=== PATIENT | male | born 1940 | race Native Hawaiian/Other Pacific Islander ===

== ENCOUNTER 2017-02-18 09:26 | Outpatient (CLI) | payer OTHER, BC ==
[~2017-02-18 09:26] MED LIST: AMLO5TAB PO; CYAN10009 IM; GLYB5TAB65 PO; INSU100P SC; LISI20TA11 PO; LISI20TA24 PO; MECL25TA84 PO; MEGESTROL AC40 MG OR; METF100038 OR; METF500T PO; NEURONTIN 100M100 MG; OMEPRAZOLE20 M1 OR; PROMETHAZINE25 MG OR; ZOLOFT25 MG OR
[2017-02-18 09:46] LABS: PLATELET COUNT 332 K/uL (142-355)
[2017-02-18 10:19] LABS: POTASSIUM 4.6 mmol/L (3.6-5.2); SODIUM 135 mmol/L (136-145)
== END 2017-02-18 20:26 | disposition home or self-care (01) ==
LOC: LABW 09:26
PROVIDERS: Internal Medicine
DX: E11.9 Type 2 diabetes mellitus without complications (principal); Z12.5 Encounter for screening for malignant neoplasm of prostate
CPT/HCPCS: 36415; 80053; 80061; 81000; 82043; 82570; 83036; 84153; 84439; 84443; 85027

== ENCOUNTER 2017-06-07 10:29 | Outpatient (CLI) | payer OTHER, BC ==
[2017-06-07 11:04] LABS: POTASSIUM 4.7 mmol/L (3.6-5.2); SODIUM 139 mmol/L (136-145)
== END 2017-06-07 19:07 | disposition home or self-care (01) ==
LOC: LABW 10:29 → RAD 10:29 → LABW 19:07
PROVIDERS: Internal Medicine
DX: M25.562 Pain in left knee (principal); M79.89 Other specified soft tissue disorders
CPT/HCPCS: 36415; 80053; 81000; 84550

== ENCOUNTER 2017-12-27 08:25 | Outpatient (CLI) | payer OTHER, BC ==
[2017-12-27 09:02] LABS: PLATELET COUNT 301 K/uL (142-355)
[2017-12-27 09:40] LABS: POTASSIUM 4.1 mmol/L (3.6-5.2)
[2018-01-06] MEDS ORDERED: ZANTAC 75 PO (04:16)
[2018-01-06] MEDS ORDERED: COLCHICINE0.6 MG PO (04:16)
[2018-01-06] MEDS ORDERED: ASPIRIN/ENTERIC81 MG PO (04:17)
== END 2017-12-27 19:46 | disposition home or self-care (01) ==
LOC: LABW 08:25
PROVIDERS: Internal Medicine
DX: E11.9 Type 2 diabetes mellitus without complications (principal)
CPT/HCPCS: 36415; 80053; 80061; 81000; 82043; 82570; 83036; 84439; 84443; 85027

== ENCOUNTER 2018-01-05 22:28 | Outpatient (CLI) | payer OTHER, BC ==
[2018-01-05] MEDS ORDERED: DOCU100C10 PO (22:51)
[2018-01-05] MEDS ORDERED: PANTOPRAZOLE 40MG TA PO (22:52)
[2018-01-05] MEDS ORDERED: AMLODIPINE BESYLATE PO (22:52)
[2018-01-05] MEDS ORDERED: ALPR0.2566 PO (22:52)
[2018-01-05] MEDS ORDERED: LIPITOR20 MG PO (22:53)
[2018-01-05] MEDS ORDERED: TRAM50TA PO (22:53)
[2018-01-06] MEDS ORDERED: COLCHICINE0.6 MG PO (04:16)
[2018-01-06] MEDS ORDERED: ZANTAC 75 PO (04:16)
[2018-01-06] MEDS ORDERED: ASPIRIN/ENTERIC81 MG PO (04:17)
== END 2018-01-05 22:30 | disposition short-term general hospital (02) ==
LOC: AMB 22:28
DX: R53.1 Weakness (principal); R53.81 Other malaise; N39.498 Other specified urinary incontinence
CPT/HCPCS: A0425; A0427

== ENCOUNTER 2018-03-03 08:18 | Outpatient (CLI) | payer OTHER, BC ==
[~2018-03-03 08:18] MED LIST changes: +ALPR0.2566 PO; +AMLODIPINE BESYLATE PO; +ASPIRIN/ENTERIC81 MG PO; +COLCHICINE0.6 MG PO; +DOCU100C10 PO; +LIPITOR20 MG PO; +PANTOPRAZOLE 40MG TA PO; +TRAM50TA PO; +ZANTAC 75 PO
[2018-03-03 08:49] LABS: POTASSIUM 3.8 mmol/L (3.6-5.2)
== END 2018-03-03 19:12 | disposition home or self-care (01) ==
LOC: LABW 08:18
PROVIDERS: Internal Medicine
DX: E11.40 Type 2 diabetes mellitus with diabetic neuropathy, unspecified (principal)
CPT/HCPCS: 36415; 80053; 83036

== ENCOUNTER 2018-09-21 13:41 | Emergency (ER) | payer OTHER, BC ==
[~2018-09-21] VITALS: Ht 162.6 cm; Wt 77.1 kg
[2018-09-21 13:45] VITALS: BP 191/92; TEMP 98
[2018-09-21 14:23] LABS: PLATELET COUNT 341 K/uL (142-355)
[2018-09-21 14:27] LABS: POTASSIUM 4.8 mmol/L (3.6-5.2)
== END 2018-09-21 15:30 | disposition home or self-care (01) ==
LOC: ED 13:41
DX: I10 Essential (primary) hypertension (principal)
CPT/HCPCS: 36415; 80053; 81000; 85027; 99283

== ENCOUNTER 2018-12-05 09:15 | Outpatient (CLI) | payer OTHER, BC ==
[2018-12-05 09:43] LABS: PLATELET COUNT 322 K/uL (142-355)
[2018-12-05 10:17] LABS: POTASSIUM 4.5 mmol/L (3.6-5.2)
== END 2018-12-05 19:05 | disposition home or self-care (01) ==
LOC: LABW 09:15
PROVIDERS: Internal Medicine
DX: E11.9 Type 2 diabetes mellitus without complications (principal)
CPT/HCPCS: 36415; 80053; 80061; 81000; 83036; 84443; 85027

== ENCOUNTER 2019-04-12 08:38 | Outpatient (CLI) | payer OTHER, BC ==
[2019-04-12 08:57] LABS: PLATELET COUNT 313 K/uL (142-355)
[2019-04-12 09:15] LABS: POTASSIUM 4.4 mmol/L (3.6-5.2)
== END 2019-04-12 23:44 | disposition home or self-care (01) ==
LOC: LABW 08:38
PROVIDERS: Internal Medicine
DX: E11.41 Type 2 diabetes mellitus with diabetic mononeuropathy (principal)
CPT/HCPCS: 36415; 80053; 80061; 81000; 85027

== ENCOUNTER 2019-06-11 09:55 | Outpatient (CLI) | payer OTHER, BC ==
[2019-06-11 11:08] LABS: PLATELET COUNT 319 K/uL (142-355)
== END 2019-06-11 23:20 | disposition home or self-care (01) ==
LOC: LABW 09:55
PROVIDERS: Physician Assistant
DX: E11.9 Type 2 diabetes mellitus without complications (principal); D64.89 Other specified anemias; R35.1 Nocturia; E55.9 Vitamin D deficiency, unspecified
CPT/HCPCS: 36415; 82306; 84153; 84443; 85027

== ENCOUNTER 2019-07-30 15:41 | Outpatient (CLI) | payer OTHER, BC | END 2019-07-30 23:05 | disposition home or self-care (01) | LOC: RAD 15:41 | DX: M25.552 Pain in left hip (principal); R29.6 Repeated falls ==

== ENCOUNTER 2019-08-02 09:16 | Outpatient (CLI) | payer OTHER, BC ==
[2019-08-02] MEDS ORDERED: LISI20TA11 PO (16:25)
== END 2019-08-02 09:18 | disposition short-term general hospital (02) ==
LOC: AMB 09:16
DX: M25.552 Pain in left hip (principal); W18.39XA Other fall on same level, initial encounter; Y93.89 Activity, other specified; Y92.018 Other place in single-family (private) house as the place of occurrence of the external cause
CPT/HCPCS: A0425; A0427

== ENCOUNTER 2019-08-02 09:20 | Inpatient (IN) | payer OTHER, BC ==
[~2019-08-02] VITALS: Ht 165.1 cm; Wt 83.5 kg
[2019-08-02] VITALS (15 sets, daily range): BP systolic 101–165; BP diastolic 52–81; TEMP 97.9–101.2; BMI 29.1
[2019-08-02 10:02] LABS: POTASSIUM 4.4 mmol/L (3.6-5.2); SODIUM 133 mmol/L (136-145)
[2019-08-02 10:16] LABS: PLATELET COUNT 404 K/uL (142-355)
[2019-08-02] MEDS ORDERED: LISI20TA11 PO (16:25)
[2019-08-03] VITALS (8 sets, daily range): BP systolic 124–140; BP diastolic 55–70; TEMP 97.8–103.1
[2019-08-03 00:06] LABS: POTASSIUM 3.5 mmol/L (3.6-5.2)
[2019-08-03 00:06] LABS: PLATELET COUNT 346 K/uL (142-355)
[2019-08-03 05:14] LABS: PLATELET COUNT 376 K/uL (142-355)
[2019-08-03 05:53] LABS: POTASSIUM 3.6 mmol/L (3.6-5.2)
[2019-08-04 01:45] VITALS: TEMP 98.9
[2019-08-04 03:58] VITALS: BP 149/74; TEMP 98.6
[2019-08-04 05:36] LABS: PLATELET COUNT 347 K/uL (142-355)
[2019-08-04 05:48] LABS: POTASSIUM 3.6 mmol/L (3.6-5.2)
[2019-08-04 08:00] VITALS: BP 131/59; TEMP 98.5
[2019-08-04 12:00] VITALS: BP 110/62; TEMP 100
[2019-08-04 16:00] VITALS: BP 134/63; TEMP 100.2
[2019-08-04 19:42] VITALS: BP 130/56; TEMP 99.8
[2019-08-05] VITALS: BP 128/84; TEMP 99.6
[2019-08-05 04:00] VITALS: BP 140/62; TEMP 99.7
[2019-08-05 06:24] LABS: PLATELET COUNT 393 K/uL (142-355)
[2019-08-05 06:32] LABS: POTASSIUM 3.4 mmol/L (3.6-5.2)
[2019-08-05 08:00] VITALS: BP 142/53; TEMP 97.7
[2019-08-05 12:38] VITALS: BP 150/62
[2019-08-05 16:00] VITALS: BP 126/82; TEMP 101.6
[2019-08-05 20:00] VITALS: BP 139/52; TEMP 99.1
[2019-08-06] VITALS (7 sets, daily range): BP systolic 127–152; BP diastolic 46–73; TEMP 98.5–102.1
[2019-08-07] VITALS (13 sets, daily range): BP systolic 132–158; BP diastolic 54–68; TEMP 97.6–98.9
[2019-08-07 11:41] LABS: PLATELET COUNT 499 K/uL (142-355)
[2019-08-07 11:52] LABS: POTASSIUM 3.8 mmol/L (3.6-5.2)
[2019-08-08 04:00] VITALS: BP 109/47; TEMP 98.5
[2019-08-08 05:24] LABS: PLATELET COUNT 506 K/uL (142-355)
[2019-08-08 06:08] LABS: POTASSIUM 3.8 mmol/L (3.6-5.2)
[2019-08-08 08:00] VITALS: BP 169/65; TEMP 98.1
[2019-08-08 12:00] VITALS: BP 147/47; TEMP 98.6
[2019-08-08 16:00] VITALS: BP 159/66; TEMP 98.3
[2019-08-08 20:00] VITALS: BP 125/54; TEMP 99.2
[2019-08-09] VITALS (8 sets, daily range): BP systolic 119–143; BP diastolic 45–68; TEMP 97.2–99.2; Ht 165.1 cm; Wt 83.5 kg
[2019-08-09 05:37] LABS: PLATELET COUNT 567 K/uL (142-355)
[2019-08-09 06:03] LABS: POTASSIUM 3.9 mmol/L (3.6-5.2)
[2019-08-10] VITALS: BP 124/56; TEMP 98.1
[2019-08-10 03:59] VITALS: BP 121/49; TEMP 98.9
[2019-08-10 05:13] LABS: PLATELET COUNT 634 K/uL (142-355)
[2019-08-10 05:25] LABS: POTASSIUM 3.7 mmol/L (3.6-5.2)
[2019-08-10 08:00] VITALS: BP 125/55; TEMP 98.2
[2019-08-10 12:00] VITALS: BP 141/63; TEMP 98
[2019-08-10 16:00] VITALS: BP 135/60; TEMP 98.4
[2019-08-10 20:00] VITALS: BP 122/49; TEMP 98.1
[2019-08-11] VITALS (7 sets, daily range): BP systolic 113–140; BP diastolic 40–66; TEMP 97.3–99.1
[2019-08-11 05:27] LABS: PLATELET COUNT 656 K/uL (142-355)
[2019-08-11 05:37] LABS: POTASSIUM 3.7 mmol/L (3.6-5.2)
[2019-08-12 03:52] VITALS: BP 135/61; TEMP 99.3
[2019-08-12 05:14] LABS: PLATELET COUNT 698 K/uL (142-355)
[2019-08-12 05:36] LABS: POTASSIUM 4.3 mmol/L (3.6-5.2)
[2019-08-12 08:00] VITALS: BP 141/66; TEMP 98.6
[2019-08-12 12:00] VITALS: BP 138/72; TEMP 98.6
[2019-08-12 16:00] VITALS: BP 162/72; TEMP 98.6
[2019-08-12 19:53] VITALS: BP 150/56; TEMP 98
[2019-08-12 23:58] VITALS: BP 135/52; TEMP 98
[2019-08-13 03:51] VITALS: BP 148/67; TEMP 98
[2019-08-13 05:48] LABS: PLATELET COUNT 663 K/uL (142-355)
[2019-08-13 05:54] LABS: POTASSIUM 4.2 mmol/L (3.6-5.2)
[2019-08-13 08:04] VITALS: BP 152/66; TEMP 98.9
[2019-08-13 12:09] VITALS: BP 178/74; TEMP 98.1
[2019-08-13 16:09] VITALS: BP 160/50; TEMP 98
[2019-08-13 20:00] VITALS: BP 162/66; TEMP 98.7
[2019-08-14 00:28] VITALS: BP 149/58; TEMP 98.9
[2019-08-14 04:00] VITALS: BP 165/74; TEMP 98.3
[2019-08-14 08:00] VITALS: BP 172/68; TEMP 98
[2019-08-14 12:00] VITALS: BP 178/68; TEMP 98.7
[2019-08-14 16:00] VITALS: BP 155/59; TEMP 98.4
[2019-08-14 19:37] VITALS: BP 142/66; TEMP 99.7
[2019-08-15 00:24] VITALS: BP 146/49; TEMP 98.3
[2019-08-15 04:02] VITALS: BP 142/55; TEMP 97.7
[2019-08-15 06:45] LABS: POTASSIUM 3.2 mmol/L (3.6-5.2)
[2019-08-15 06:46] LABS: PLATELET COUNT 582 K/uL (142-355)
[2019-08-15 08:00] VITALS: BP 155/59; TEMP 98.5
[2019-08-15 12:17] VITALS: BP 160/69; TEMP 99.4
[2019-08-15 15:47] VITALS: BP 142/55; TEMP 97.9
[2019-08-15 19:55] VITALS: BP 142/55; TEMP 98.3
[2019-08-16] VITALS (7 sets, daily range): BP systolic 141–173; BP diastolic 57–92; TEMP 97.9–98.8
[2019-08-16 05:00] LABS: PLATELET COUNT 584 K/uL (142-355)
[2019-08-16 05:42] LABS: POTASSIUM 4.1 mmol/L (3.6-5.2)
[2019-08-17 04:00] VITALS: BP 136/45; TEMP 98.5
[2019-08-17 08:00] VITALS: BP 173/73; TEMP 97.6
[2019-08-17 12:00] VITALS: BP 179/81; TEMP 97.2
[2019-08-17 16:00] VITALS: BP 151/63; TEMP 97.9
[2019-08-17 20:00] VITALS: BP 151/68; TEMP 98.9
[2019-08-18] VITALS: BP 141/61; TEMP 98.1
[2019-08-18 04:00] VITALS: BP 164/66; TEMP 98.3
[2019-08-18 04:44] LABS: PLATELET COUNT 499 K/uL (142-355)
[2019-08-18 05:29] LABS: POTASSIUM 4.1 mmol/L (3.6-5.2)
[2019-08-18 08:09] VITALS: BP 149/69; TEMP 97.7
[2019-08-18 12:09] VITALS: BP 143/63; TEMP 98.4
[2019-08-18 16:08] VITALS: BP 141/64; TEMP 98.3
[2019-08-18 20:00] VITALS: BP 149/67; TEMP 98.2
[2019-08-19] VITALS: BP 130/47; TEMP 97.6
[2019-08-19 04:00] VITALS: BP 142/44; TEMP 98.1
[2019-08-19 08:00] VITALS: BP 137/72; TEMP 98.5
[2019-08-19 12:00] VITALS: BP 143/57; TEMP 98.3
[2019-08-19 16:00] VITALS: BP 140/54; TEMP 98.5
[2019-08-19 19:33] VITALS: BP 145/56; TEMP 99
[2019-08-20 00:02] VITALS: BP 142/49; TEMP 98.2
[2019-08-20 04:24] VITALS: BP 147/63; TEMP 98.5
[2019-08-20 05:45] LABS: POTASSIUM 4.2 mmol/L (3.6-5.2)
[2019-08-20 06:22] LABS: PLATELET COUNT 459 K/uL (142-355)
[2019-08-20 08:00] VITALS: BP 155/63; TEMP 98.1
[2019-08-20 12:00] VITALS: BP 120/57; TEMP 97.8
[2019-08-20 16:00] VITALS: BP 152/61; TEMP 98
[2019-08-20 19:57] VITALS: BP 125/70; BP 135/48; TEMP 98; TEMP 99.4
[2019-08-21 00:26] VITALS: BP 148/59; TEMP 98.6
[2019-08-21 04:00] VITALS: BP 156/67; TEMP 98.8
[2019-08-21 08:00] VITALS: BP 147/62; TEMP 98.5
[2019-08-21 12:00] VITALS: BP 170/65; TEMP 97.8
[2019-08-21 16:00] VITALS: BP 119/59; TEMP 98.6
[2019-08-21 20:00] VITALS: BP 114/61; TEMP 98.8
[2019-08-22] VITALS: BP 173/63; TEMP 99.5
[2019-08-22 04:00] VITALS: BP 113/48; TEMP 98.1
[2019-08-22 08:00] VITALS: BP 136/63; TEMP 98.1
[2019-08-22 12:00] VITALS: BP 130/57; TEMP 99.3
[2019-08-22 16:00] VITALS: BP 120/57; TEMP 99.3
[2019-08-22 20:04] VITALS: BP 129/50; TEMP 98.7
[2019-08-23] VITALS: BP 156/67; TEMP 98.1
[2019-08-23 04:00] VITALS: BP 148/55; TEMP 98.8
[2019-08-23 08:00] VITALS: BP 141/79; TEMP 98.1
== END 2019-08-23 09:15 | DRG 501 ==
LOC: ED 09:20 → MED/SURG 13:40
PROVIDERS: Family Medicine; Hospitalist; Internal Medicine; ADMIT Emergency Medicine
PROC: 0Y6V0Z0 Detachment at Right 4th Toe, Complete, Open Approach (ICD-10-PCS; principal; 2019-08-07)
PROC: 0QDQ0ZZ Extraction of Right Toe Phalanx, Open Approach (ICD-10-PCS; 2019-08-07)
PROC: 02HV33Z Insertion of Infusion Device into Superior Vena Cava, Percutaneous Approach (ICD-10-PCS; 2019-08-07)
DX: M86.171 Other acute osteomyelitis, right ankle and foot (principal); L02.611 Cutaneous abscess of right foot; E11.52 Type 2 diabetes mellitus with diabetic peripheral angiopathy with gangrene; I96 Gangrene, not elsewhere classified; R78.81 Bacteremia; E11.69 Type 2 diabetes mellitus with other specified complication; Z79.4 Long term (current) use of insulin; R31.9 Hematuria, unspecified; I25.10 Atherosclerotic heart disease of native coronary artery without angina pectoris; Z91.81 History of falling; E11.42 Type 2 diabetes mellitus with diabetic polyneuropathy; E86.0 Dehydration; E83.42 Hypomagnesemia; I10 Essential (primary) hypertension; D63.8 Anemia in other chronic diseases classified elsewhere; E87.6 Hypokalemia; T36.0X5A Adverse effect of penicillins, initial encounter; Y92.238 Other place in hospital as the place of occurrence of the external cause; G31.84 Mild cognitive impairment of uncertain or unknown etiology; B95.61 Methicillin susceptible Staphylococcus aureus infection as the cause of diseases classified elsewhere
CPT/HCPCS: 36415; 80048; 80053; 80202; 81000; 82550; 82553; 83605; 83735; 84484; 84550; 85007; 85027; 85651; 86140; 87040; 87077; 87185; 87186; 87205; 93005; 96365; 96366; 99284; A9561; A9576; C1751; J0696; J1200; J1642; J1650; J1815; J1940; J1956; J2405; J2543; J2704; J2930; J3370; J3475

== ENCOUNTER 2019-09-05 17:06 | Emergency (ER) | payer OTHER, BC ==
[~2019-09-05] VITALS: Ht 165.1 cm; Wt 83.5 kg
[2019-09-05 17:58] VITALS: BP 139/62; TEMP 97.5
== END 2019-09-05 17:58 | disposition home or self-care (01) ==
LOC: ED 17:06
DX: T82.594A Other mechanical complication of infusion catheter, initial encounter (principal); Z79.2 Long term (current) use of antibiotics
CPT/HCPCS: 99282

== ENCOUNTER 2019-09-20 10:09 | Outpatient (CLI) | payer OTHER, BC ==
[2019-09-20 10:33] LABS: PLATELET COUNT 405 K/uL (142-355)
[2019-09-20 10:41] LABS: POTASSIUM 3.9 mmol/L (3.6-5.2)
== END 2019-09-20 19:53 | disposition home or self-care (01) ==
LOC: LAB 10:09
PROVIDERS: Internal Medicine
DX: E11.40 Type 2 diabetes mellitus with diabetic neuropathy, unspecified (principal); M86.671 Other chronic osteomyelitis, right ankle and foot; R78.81 Bacteremia
CPT/HCPCS: 80053; 83036; 85027; 85651; 87040

== ENCOUNTER 2019-10-12 10:57 | Outpatient (CLI) | payer OTHER, BC | END 2019-10-12 10:59 | disposition short-term general hospital (02) | LOC: AMB 10:57 | DX: R53.1 Weakness (principal) | CPT/HCPCS: A0425; A0427 ==

== ENCOUNTER 2019-10-12 11:12 | Emergency (ER) | payer OTHER, BC ==
[~2019-10-12] VITALS: Ht 165.1 cm; Wt 83.5 kg
[2019-10-12 11:17] VITALS: TEMP 97.2
[2019-10-12 12:44] LABS: PLATELET COUNT 431 K/uL (142-355)
[2019-10-12 12:46] LABS: POTASSIUM 4.4 mmol/L (3.6-5.2); SODIUM 132 mmol/L (136-145)
[2019-10-12 15:00] LABS: PARTIAL THROMBOPLASTIN TIME 27.8 SECONDS (24.5-33.6)
[2019-10-12 18:46] VITALS: BP 148/72
== END 2019-10-12 18:45 | disposition home or self-care (01) ==
LOC: ED 11:12
PROVIDERS: Family Medicine
DX: R53.1 Weakness (principal); R79.89 Other specified abnormal findings of blood chemistry; E87.1 Hypo-osmolality and hyponatremia; W18.39XA Other fall on same level, initial encounter; Y92.89 Other specified places as the place of occurrence of the external cause; Z79.82 Long term (current) use of aspirin; Z51.81 Encounter for therapeutic drug level monitoring
CPT/HCPCS: 80053; 81000; 82550; 84484; 85027; 85379; 85610; 85730; 93005; 96360; 99284; Q9963

== ENCOUNTER 2019-10-15 09:53 | Outpatient (CLI) | payer OTHER, BC ==
[2019-10-15 10:12] LABS: PLATELET COUNT 459 K/uL (142-355)
[2019-10-15 10:20] LABS: POTASSIUM 4.5 mmol/L (3.6-5.2)
== END 2019-10-15 19:24 | disposition home or self-care (01) ==
LOC: LABW 09:53
PROVIDERS: Internal Medicine
DX: M86.38 Chronic multifocal osteomyelitis, other site (principal); E11.9 Type 2 diabetes mellitus without complications; G04.89 Other myelitis
CPT/HCPCS: 36415; 80053; 83036; 85027; 85379; 85651; 86140

== ENCOUNTER 2019-10-18 22:08 | Emergency (ER) | payer OTHER, BC ==
[~2019-10-18] VITALS: Ht 165.1 cm; Wt 76.7 kg
[2019-10-18 22:15] VITALS: BP 115/53; TEMP 98.3
== END 2019-10-18 22:15 | disposition home or self-care (01) ==
LOC: ED 22:08
DX: I10 Essential (primary) hypertension (principal)
CPT/HCPCS: 99281

== ENCOUNTER 2019-11-14 15:07 | Outpatient (CLI) | payer OTHER, BC | END 2019-11-14 15:09 | disposition short-term general hospital (02) | LOC: AMB 15:07 | DX: R07.81 Pleurodynia (principal); W18.39XA Other fall on same level, initial encounter; Y92.89 Other specified places as the place of occurrence of the external cause | CPT/HCPCS: A0425; A0429 ==

== ENCOUNTER 2019-11-14 15:12 | Emergency (ER) | payer OTHER, BC ==
[~2019-11-14] VITALS: Ht 167.6 cm; Wt 77.1 kg
[2019-11-14 16:38] VITALS: BP 146/64; TEMP 97.7
== END 2019-11-14 16:55 | disposition home or self-care (01) ==
LOC: ED 15:12
DX: S20.212A Contusion of left front wall of thorax, initial encounter (principal); S20.211A Contusion of right front wall of thorax, initial encounter; W18.39XA Other fall on same level, initial encounter; Y92.098 Other place in other non-institutional residence as the place of occurrence of the external cause
CPT/HCPCS: 99283

== ENCOUNTER 2020-02-22 15:24 | Emergency (ER) | payer OTHER, BC ==
[~2020-02-22] VITALS: Ht 167.6 cm; Wt 81.2 kg
[2020-02-22 16:19] LABS: PLATELET COUNT 335 K/uL (142-355)
[2020-02-22 16:26] LABS: POTASSIUM 4.1 mmol/L (3.6-5.2)
[2020-02-22 17:55] VITALS: BP 160/70; TEMP 98.4
== END 2020-02-22 17:55 | disposition home or self-care (01) ==
LOC: ED 15:33
PROVIDERS: Family Medicine
DX: E11.649 Type 2 diabetes mellitus with hypoglycemia without coma (principal); Z79.84 Long term (current) use of oral hypoglycemic drugs
CPT/HCPCS: 80053; 81000; 82962; 85027; 96361; 96365; 96374; 96375; 99284; J7060

== ENCOUNTER 2020-03-26 10:00 | Outpatient (CLI) | payer OTHER, BC ==
[2020-03-26 11:06] LABS: POTASSIUM 3.9 mmol/L (3.6-5.2)
== END 2020-03-26 22:22 | disposition home or self-care (01) ==
LOC: LAB 10:00
PROVIDERS: Internal Medicine
DX: E11.9 Type 2 diabetes mellitus without complications (principal); F41.8 Other specified anxiety disorders; I10 Essential (primary) hypertension
CPT/HCPCS: 36415; 80053; 80061; 81000; 82043; 82570; 83036; 84439; 84443; 84550

== ENCOUNTER 2020-07-02 14:29 | Outpatient (CLI) | payer OTHER, BC ==
[2020-07-02 14:53] LABS: POTASSIUM 3.6 mmol/L (3.6-5.2)
[2020-07-02 14:59] LABS: PLATELET COUNT 321 K/uL (142-355)
== END 2020-07-02 22:03 | disposition home or self-care (01) ==
LOC: LAB 14:29
PROVIDERS: Internal Medicine
DX: E11.9 Type 2 diabetes mellitus without complications (principal)
CPT/HCPCS: 80053; 83036; 85027

== ENCOUNTER 2020-12-30 11:34 | Outpatient (CLI) | payer BC ==
[2020-12-30 12:02] LABS: PLATELET COUNT 318 K/uL (142-355)
[2020-12-30 12:49] LABS: POTASSIUM 3.6 mmol/L (3.6-5.2)
== END 2020-12-30 19:41 | disposition home or self-care (01) ==
LOC: LABW 11:34
PROVIDERS: ATTEND Internal Medicine
DX: E11.9 Type 2 diabetes mellitus without complications (principal)
CPT/HCPCS: 36415; 80053; 80061; 81000; 82043; 82570; 83036; 84439; 84443; 85027

== ENCOUNTER 2021-01-30 16:45 | Emergency (ER) | payer BC ==
[~2021-01-30] VITALS: Ht 162.6 cm; Wt 81.6 kg
[2021-01-30] MEDS ORDERED: CADUET10 MG/10 M PO (16:59)
[2021-01-30] MEDS ORDERED: LISI20TA11 PO (16:59)
[2021-01-30 17:32] LABS: PLATELET COUNT 325 K/uL (142-355)
[2021-01-30 17:37] LABS: POTASSIUM 3.8 mmol/L (3.6-5.2)
[2021-01-30 22:19] VITALS: BP 190/91; TEMP 97.9
== END 2021-01-30 22:19 | disposition home or self-care (01) ==
LOC: ED 16:45
PROVIDERS: Family Medicine
PROC: 0T9B70Z Drainage of Bladder with Drainage Device, Via Natural or Artificial Opening (ICD-10-PCS; principal; 2021-01-30)
DX: R33.8 Other retention of urine (principal); K59.09 Other constipation
CPT/HCPCS: 36415; 51702; 80053; 81000; 85027; 99284; J1885